=== PATIENT | female | born 1995 | race Caucasian/White ===

== ENCOUNTER 2017-02-03 18:15 | Emergency (ER) | payer SELFPAY ==
[~2017-02-03] VITALS: Ht 157.5 cm; Wt 58.6 kg
[2017-02-03 20:03] VITALS: BP 119/71
== END 2017-02-03 20:09 | disposition home or self-care (01) ==
LOC: EMS 18:17
DX: S09.90XA Unspecified injury of head, initial encounter (principal); W22.8XXA Striking against or struck by other objects, initial encounter; Y93.89 Activity, other specified; Y92.89 Other specified places as the place of occurrence of the external cause; Y99.8 Other external cause status
CPT/HCPCS: 99281